=== PATIENT | female | born 1940 | race Caucasian/White ===

== ENCOUNTER 2017-11-01 13:34 | Inpatient (IN) ==
[2017-11-01] MEDS ORDERED: Naloxone 0.4 MG/ML INJ IVP PRN (14:03)
[2017-11-01] MEDS ORDERED: Acetaminophen 325 MG TABLET PO PRN (14:03)
--- NOTE | 2017-11-01 14:31 | Internal Med History&Physical ---
Date of Encounter: 11/01/17 Time of Encounter: 14:00 Internal Medicine - H&P: HPI Chief complaint: pneumothorax post lung biopsy History of present illness: Ms. Renae is a 77 year old female with history of COPD, [id number] smoking , hyperlipidemia was directly admitted from the interventional radiology suite after a lung biopsy. She had CT guided lung biopsy of the right peripheral lung lesion this morning. Following the procedure, a small pneumothorax was seen which necessitated a chest tube insertion. She was admitted for overnight observation after the procedure. Occurred in the mild discomfort over D biopsy as well as the chest tube insertion site, she denies any shortness of breath, chest pain, cough, or significant respiratory distress. No recent illnesses, fever/chills, or GI/ symptoms. On admission to the floor, she was afebrile and hemodynamically stable, saturating 99% on 2 L of oxygen. Past Med Surg Social Fam HX - Past Medical History Attestation: Yes The following information was validated with the patient. Medical history: arthritis, COPD, hyperlipidemia Additional medical history: PVD. DDD Psychiatric history: anxiety - Past Surgical History Surgical History: cataract, cholecystectomy - Social History Smoking Status: Former smoker Packs per day: 80 pack year history Smokeless Tobacco Status: No Alcohol use: occasionally Drug use: none - Family History Mother History Unknown: Yes Living Status: Father History Unknown: Yes Living Status: Internal Medicine - H&P: Meds 3 Allergy/AdvReac Type Severity Reaction Status Date / Time No Known Allergies Allergy Verified 11/01/17 12:02 All Systems PM: A 10-system review of systems was performed and is negative for pertinent findings except as documented above in the HPI. - Constitutional Vitals: Temp Pulse Resp BP Pulse Ox 98.1 F 81 16 156/76 99 11/01/17 14:09 11/01/17 14:09 11/01/17 14:09 11/01/17 14:09 11/01/17 14:09 Exam: General: Alert and oriented, not in acute distress. HEENT:EOM, pupils equal, round and reactive. Cardiovascular:Normal S1 & S2, No JVD. Pulse regular. Lungs: clear to auscultation, no wheezes/rales. Chest tube site dressing dry and intact Abdomen:Soft, non-tender, no rigidity. Extremities:No deformity or swelling Neurological:Normal cognition and motor skills. Non-focal Skin:Normal color, no rash, no lesions. Pulses:Carotid and radial pulses normal +2. Rest of the physical exam is non contributory - Assessment and plan (1) Pneumothorax after biopsy Current Visit: Yes Status: Acute Assessment and plan: Underwent biopsy of the right peripheral lung lesion, completed by development of small pneumothorax s/p chest tube insertion, on suction overnight repeat CXR tomorrow morning removal per IR, consult placed (2) Lung nodule Current Visit: Yes Status: Acute Assessment and plan: History of [id number] smoking, underwent biopsy today Follow-up path result outpatient (3) DVT prophylaxis Current Visit: Yes Status: Acute Assessment and plan: Subcutaneous heparin - Time Spent With Patient Total time spent is greater than 50% in coordination of care (as documented) at patient's floor/unit and/or counseling patient:
[2017-11-01] MEDS: traMADol 50 MG TABLET PO PRN ×2 (14:51→20:19)
[2017-11-01] MEDS: *HR* Heparin 5,000 UNIT/ML VIAL SQ SCH (17:42)
[2017-11-01] MEDS: *HR* OxyCODONE Immed Rel 5 MG TABLET PO PRN (17:42)
[2017-11-01] MEDS: Budesonide/Formoterol 160/4.5 1 PUFF INH IH SCH (19:30)
[2017-11-01] MEDS ORDERED: Gabapentin 300 MG CAPSULE PO SCH (21:00)
[2017-11-02] MEDS: *HR* OxyCODONE Immed Rel 5 MG TABLET PO PRN (01:39)
[2017-11-02] MEDS: *HR* Heparin 5,000 UNIT/ML VIAL SQ SCH (06:15)
[2017-11-02] MEDS: traMADol 50 MG TABLET PO PRN (06:22)
[2017-11-02] MEDS: Budesonide/Formoterol 160/4.5 1 PUFF INH IH SCH (07:42)
--- NOTE | 2017-11-02 11:43 | Discharge Summary ---
- NOTES TO OUTPATIENT PROVIDER Notes to Outpatient Provider: Patient was admitted for right-sided pneumothorax post lung biopsy requiring chest tube. It remained on suction overnight with repeat x-ray showing no residual pneumothorax. She had it removed by IR and repeat x-ray again demonstrated that there is no discernible PTX. She is discharged home in stable condition on 11/02 Date of Encounter: 11/02/17 Time of Encounter: 09:10 - Discharge Diagnosis (1) Pneumothorax after biopsy Priority: Primary Status: Acute (2) Lung nodule Priority: Secondary Status: Acute (3) DVT prophylaxis Priority: Secondary Status: Acute Hospital course: Ms. Renae is a 77 year old female was directly admitted from interventional radiology after right lung biopsy that resulted in pneumothorax, requiring chest tube insertion. Remained in hospital for observation overnight with O2 without any symptoms. Repeat x-ray in the morning did not show any evidence of residual pneumothorax and chest tube was successfully removed by the interventional radiology. Following chest x-ray after the removal continues to show no discernible pneumothorax and she was discharged in stable condition on . Discharge discussed with: patient, family, nurse - Time Spent with Patient Total time spent providing and/or coordinating discharge services: Greater than 30 minutes - Discharge Medications Prescriptions: Acetaminophen w/Cod 300-30 mg [Tylenol w/Codeine #3] 1 each PO Q8HR PRN 4 Days # 12 tablet PRN Reason: Severe Pain Home Medications: Albuterol Sulfate [Ventolin Hfa] 2 puff IH Q6H PRN 11/01/17 [History] Budesonide/Formoterol 160/4.5 [Symbicort 160/4.5] 2 puff IH BIDR 11/01/17 [ History] Gabapentin [Neurontin] 300 mg PO HS 11/01/17 [History] HydrOXYzine 10 - 20 mg PO BID PRN 11/01/17 [History] Simvastatin [Zocor] 40 mg PO QPM 11/01/17 [History] Acetaminophen w/Cod 300-30 mg [Tylenol w/Codeine #3] 1 each PO Q8HR PRN 4 Days # 12 tablet 11/02/17 [Rx] Allergies/Adverse Reactions: 3 Allergy/AdvReac Type Severity Reaction Status Date / Time No Known Allergies Allergy Verified 11/01/17 12:02 Date of admission: 11/01/17 15:31 Consults: 11/01/17 14:25 Consult to Interventional Radiology [CONS] Routine Consulting Provider: Radiology Interventional Cols Reason for Consult: pneumothorax post lung biopsy Call Completed: Yes - Constitutional Vitals: Temp Pulse Resp BP Pulse Ox 97.8 F 79 16 172/79 93 11/02/17 08:32 11/02/17 08:32 11/02/17 08:32 11/02/17 08:32 11/02/17 08:32 Exam: General: Alert and oriented, not in acute distress. HEENT:EOM, pupils equal, round and reactive. Cardiovascular:Normal S1 & S2, No JVD. Pulse regular. Lungs: clear to auscultation, no wheezes/rales. Chest tube site dressing dry and intact Abdomen:Soft, non-tender, no rigidity. Extremities:No deformity or swelling Neurological:Normal cognition and motor skills. Non-focal Skin:Normal color, no rash, no lesions. Pulses:Carotid and radial pulses normal +2. Rest of the physical exam is non contributory - Patient Status Disposition: Home, Self-Care Condition: Good Overall status at discharge: patient is progressing back to baseline - Discharge Instructions - Diet and Activity Activity: resume usual activities as tolerated Diet: regular diet
[2017-11-02 11:58] VITALS: BP 170/64
== END 2017-11-02 13:03 | disposition home or self-care (01) | DRG 201 ==
LOC: 2ANU → SUATTDRO 13:56
PROVIDERS: ADMIT Internal Medicine; ATTEND Internal Medicine